=== PATIENT | male | born 1985 | race African-American/Black ===

== ENCOUNTER → 2018-07-23 | Outpatient (CLI) | payer OTHER ==
[~2018-07-23] MED LIST: CONRAY-43 43% 50ML VIAL (Q9960) As Ordered ONE; PROHANCE 279.3MG/ML 5ML VIAL (A9576) As Ordered ONE
--- NOTE | 2018-07-23 09:34 | REP ---
MR ARTHROGRAPHY LEFT SHOULDER: With pre and post intra-articular gadolinium enhanced saline injected imaging: HISTORY: Left shoulder pain. History of instability. There are no comparison radiographs available. TECHNIQUE: The injection procedure is performed and dictated separately. Pre and post intra-articular gadolinium enhanced saline injected imaging is acquired. Imaging planes include axial, oblique coronal, oblique sagittal and ABER projection images. T1- and T2-weighted scans are included with and without fat saturation. MRI FINDINGS: There is a fairly large subcortical cyst in the posterior glenoid measuring approximately 9 mm. There is a posterior glenoid labral cartilage tear, which is not displaced. A nondisplaced SLAP component of the tear is suspected as well. There is a small paralabral cyst associated with this anteriorly. There is no evidence of joint effusion or loose body. Subcortical cyst formation is seen in the superolateral humeral head. This finding has been associated with impingement. Cortical and medullary bone signal intensity are otherwise normal. No significant subacromial subdeltoid bursal effusion is seen. On post injection imaging, there is good filling and enhancement of the glenohumeral articulation. The posterior labral tear and the SLAP tear are nicely demonstrated and with contrast enhanced saline undermining the articular cartilage. There is the appearance of mild fraying of the anterior labral cartilage. No cartilage displacement is seen. The glenoid cyst seen posteriorly shows some enhancement on T1-weighted post injection images. There is no evidence of rotator cuff. Biceps tendon is unremarkable. IMPRESSION: No visible rotator cuff tear . There is evidence of nondisplaced labral tear posteriorly with associated with a posterior glenoid intraosseous cyst. A slap component is seen nondisplaced with a small paralabral cyst anterosuperiorly as well. There is mild tendonitis tendinosis in the distal supraspinatus. Electronically Signed by Donta Ann MD 07/23/2018 06:01 P
--- NOTE | 2018-07-23 18:08 | REP ---
Procedure: Left shoulder arthrogram The procedure was performed under the direct supervision of Dr. Ann. History: Left shoulder pain. The benefits and risks including but not limited to pain, infection, bleeding and anaphylaxis were explained to the patient and informed consent was obtained. Technique: The left glenohumeral joint space was localized using fluoroscopic guidance. The skin was prepped and draped in a sterile fashion. 1% lidocaine was used as a local anesthetic. Using fluoroscopic guidance a 22 gauge spinal needle was inserted and advanced into the joint. 0.5 ml of Conray 43 was injected to verify placement. 11 ml of a solution containing 20 ml of sterile saline and 0.15 ml of ProHance was injected into the joint. The needle was removed and the patient was taken to MRI for postprocedural imaging. The the patient tolerated the procedure well and there were no immediate complications. Less than 6 seconds of fluoro time was utilized for this procedure. Reviewed by DAVID Luther 07/23/2018 10:00 A Electronically Signed by Donta Ann MD 07/23/2018 05:59 P
== END ==
LOC: M RADPRO 06:56
PROVIDERS: ATTEND Physician Assistant
DX: S43.492A Other sprain of left shoulder joint, initial encounter (principal); S43.432A Superior glenoid labrum lesion of left shoulder, initial encounter; M75.80 Other shoulder lesions, unspecified shoulder
CPT/HCPCS: 23350; 73223; 77002; A9576; Q9960

== ENCOUNTER 2018-07-29 07:04 | Day surgery (SDC) | payer OTHER ==
[~2018-07-29] VITALS: Ht 177.8 cm; Wt 64.3 kg
[2018-07-29] MEDS ORDERED: fentaNYL 100 MCG/2 ML INJECTION (J3010) As Ordered ONE (07:43)
[2018-07-29] MEDS ORDERED: LIDOCAINE 2% INJ 100 MG/5 ML SDV (FOR ANES.) As Ordered ONE (07:43)
[2018-07-29] MEDS ORDERED: PROPOFOL 500 MG/50 ML VIAL As Ordered ONE (07:43)
[2018-07-29] MEDS ORDERED: MIDAZOLAM INJ 2 MG/2 ML VIAL (J2250) As Ordered ONE (07:44)
[2018-07-29] MEDS ORDERED: LIDOCAINE 1% MDV 20ML VIAL As Ordered ONE (07:49)
[2018-07-29] MEDS ORDERED: dexameTHASONE 4 MG/ML 1ML VIAL (J1100) As Ordered ONE (07:49)
[2018-07-29] MEDS ORDERED: BUPIVACAINE HCL 0.5% 30 ML VIAL As Ordered ONE (07:49)
[2018-07-29] MEDS ORDERED: ceFAZolin 2 GM/D5W 50 ML IV BAG (J0690 PER 500MG) As Ordered ONE (07:55)
[2018-07-29 10:43] VITALS: BP 142/92
--- NOTE | 2018-07-29 13:39 | RO ---
DATE OF PROCEDURE: 07/29/2018 PREPROCEDURE DIAGNOSES: Right foot bunion, hallux valgus, and fifth hammertoe. POSTPROCEDURE DIAGNOSES: Right foot bunion, hallux valgus, and fifth hammertoe. PROCEDURE: Right foot bunionectomy, first metatarsal osteotomy, and fifth derotational arthroplasty. SURGEON: Jacky Medrano DPM SLUNK SKIN CURER: ANESTHESIA: Preoperative injection of 17 mL of 1:1 mixture of 1% Xylocaine and 0.25% Marcaine plain. ESTIMATED BLOOD LOSS: Minimal. MATERIALS: Arthrex 2.5 headless compression screw, #3-0 and #4-0 Vicryl, #4-0 nylon. INJECTABLES: 1 mL of Decadron 4 mg/mL. COMPLICATIONS: None. CONDITION: Stable. Ian Bo is a 33-year-old male who presents to [facility] with complaints of painful bunion and fifth toe. He presents today for surgical correction. The patient's side and site were identified and marked in the preoperative holding area. Consent was reviewed and obtained. All risks, complications and alternatives to the procedure were explained to the patient in detail and all questions were answered. PROCEDURE: The patient was brought to the Operating Room and placed on the operating room table in supine position. Moderate anesthesia care was delivered by the anesthesia team. Preoperative injection of 17 mL of 1:1 mixture of 1% lidocaine and 0.5% Marcaine plain were injected to the right foot. The right foot was prepped and draped in a normal sterile manner. A tourniquet was applied to the let ankle and inflamed to 200 mmHg. The patient received Ancef preoperatively. Attention was first paid to the bunion. A dorsal-medial incision was drawn and carried through with a #15 blade. Dissection was carried down to the first metatarsal capsule was identified. Bovie was used to maintain hemostasis. A T-capsulotomy was performed exposing the metatarsal head. Following this, a lateral release was performed releasing the adductor tendon, lateral capsule, and sesamoidal ligaments. A McGlamry elevator was used to free the plantar structures. Next, the medial eminence was resected with sagittal saw, and an osteotomy was performed in the metatarsal head and transposing it laterally. This was fixated with an Arthrex 2.5 headless compression screw. The remaining bone ledges were resected with sagittal saw and smoothed with a rasp. The site was irrigated with normal saline. Capsular repair was performed with #3-0 Vicryl, subcutaneous closure with #4-0 Vicryl and skin closure with #4- nylon. Next, attention was paid to the fifth toe and an elliptical incision was drawn over the proximal metatarsophalangeal joint and carried through with a #15 blade. Transverse tenotomy was performed at the proximal interphalangeal joint level. Collateral ligaments to the proximal phalanx head were released. The proximal phalanx head was resected with saggital saw. Wound was irrigated with normal saline. Extensor tendon repair was performed with #3-0 Vicryl and skin was repaired with #4-0 nylon. Sterile dressings were applied. The tourniquet was deflated. 1 mL of Decadron was injected. The patient was brought to the post anesthesia care unit (PACU) with vital signs stable and neurovascular status intact. He will be weightbearing with crutches. He will followup in the office in two days.
== END 2018-07-29 10:55 | disposition home or self-care (01) ==
LOC: M SDC 07:04 → EDUNIT# 08:30 → M SDC 10:55
PROVIDERS: ATTEND Podiatrist Foot & Ankle Surgery
DX: M20.11 Hallux valgus (acquired), right foot (principal); M20.41 Other hammer toe(s) (acquired), right foot
CPT/HCPCS: 28285; 28296; 88300; 97116; C1713; J1100; J2250; J3010